=== PATIENT | female | born 1985 | race Caucasian/White ===

== ENCOUNTER → 2017-06-02 | Outpatient (CLI) | payer BC | END | disposition home or self-care (01) | LOC: C.PAPS 14:56 | PROVIDERS: ATTEND Physician Assistant | DX: Z01.419 Encounter for gynecological examination (general) (routine) without abnormal findings (principal) ==

== ENCOUNTER → 2017-06-02 | Outpatient (CLI) | payer BC ==
[2017-06-02 14:23] LABS: URINE APPEARANCE CLEAR (CLEAR); URINE BILIRUBIN NEG (NEG); URINE COLOR YELLOW; URINE EPITHELIAL CELL AUTO >30 /lpf (0-5); URINE NITRITE NEG (NEG); URINE PH 5.5 (4.5-7.5); URINE SPECIFIC GRAVITY 1.029 (1.000-1.030); UROBILINOGEN NEG (NEG)
[2017-06-02 14:30] LABS: MANUAL MICROSCOPIC REQUIRED? NO; REVIEW REQ? NO
== END | disposition home or self-care (01) ==
LOC: C.LABSPEC 13:53
PROVIDERS: ATTEND Physician Assistant
DX: R39.9 Unspecified symptoms and signs involving the genitourinary system (principal)

== ENCOUNTER 2025-03-03 08:40 | Inpatient (IN) ==
[2025-03-03] MEDS ORDERED: ACETAMINOPHEN 500 MG TAB PO PRN (09:05)
[2025-03-03] MEDS ORDERED: LIDOCAINE 1% LOCAL 20 ML VIAL INFIL PRN (09:05)
[2025-03-03] MEDS ORDERED: OXYTOCIN 30 UNITS/NSS 30 UNITS/500 ML BAG IV PRN (09:05)
--- NOTE | 2025-03-03 09:15 | History & Physical Report ---
Date of Service March 03, 2025 Assessment & Plan (1) AMA (advanced maternal age) primigravida 35+: (2) Rh negative status during in first trimester: (3) with 38 completed weeks gestation: (4) Spontaneous rupture of amniotic membranes: Plan: 39-year-old -0-1-0 at 38 weeks and 4-day of gestation presenting today with spontaneous rupture of membranes and regular contractions, Vital signs stable afebrile, GBS negative, heart rate reassuring, Patient has a board plan and desires expectant management with no medical intervention, Plan to admit, monitor, labs,, All questions were answered. Admission and Anticipated Discharge Date Admission Date: March 03, 2025 History of Present Illness Primary Care Provider: Jesus Hicks III, EZEQUIEL patient is a 39-year-old -0-1-0 at 38 weeks and 4 days of gestation who presented to labor and delivery this morning with contractions and appeared to be uncomfortable. She states her water broke around 10:30 PM last night and contractions started around 11 PM. She labored at home and was able to sleep in between contractions. Fluid has been clear, started as a gush and she has been leaking small amounts of fluid since then. Her cervix was checked by admitting nurse when she first presented and it was 2 to 3 cm dilated, 90% effaced head was at minus-2 station. Bedside ultrasound confirmed vertex presentation. Her has been uncomplicated except AMA, NIPT testing was with low risk and RH negative. MFM ultrasound done at 32 weeks for revealed EFW of 65th percentile. She denies any medical problems, smoking, alcohol, drug use, and history of STDs including chlamydia gonorrhea herpes. She states she does not take any medications but takes vitamin and some supplements. And she has about plan which is reviewed by myself and her nurse. Allergies Allergy/AdvReac Type Severity Reaction Status Date / Time No Known Allergies Allergy Verified 07/12/24 15:06 Home Medications Medication Instructions Recorded Confirmed Type Fertility Support 1 dose PO DAILY 12/22/23 07/12/24 History Lactobacil.acidophilus-Bifido.animalis 1 cap PO DAILY 12/22/23 07/12/24 History 5 billion cell sprinkle capsule (Probiotic) magnesium 200 mg tablet 200 mg PO DAILY 12/22/23 07/12/24 History vits no.133-ferrous 1 tab PO DAILY 12/22/23 07/12/24 History fumarate 28 mg-folic acid 800 mcg tablet () s-adenosylmethionine 400 mg tablet 400 mg PO DAILY 12/22/23 07/12/24 History (MELANIA-e) cephalexin 500 mg tablet 500 mg PO BID #20 tabs 02/22/24 07/12/24 Rx lidocaine HCl 2 % mucosal solution 5 ml mucous membrane QID #100 mL 02/22/24 07/12/24 Rx (Lidocaine Viscous) Patient History Medical History (Updated 03/03/25 @ 09:19 by Alyce Desouza MD) Non-viable Depression Controlled, no meds currently Anxiety Controlled, no meds currently History of COVID-19 10/2022 Surgical History History of esophagogastroduodenoscopy (EGD) History of appendectomy [place] teeth extracted History of intussusception surgery 8 months old S/P laparoscopy with lysis of adhesions Family History Grandmother (Paternal) Breast cancer, Onset Age: 32 Grandfather (Maternal) Hypertension Denies family history of Ovarian cancer Prostate cancer Myocardial infarction Colorectal cancer Social History (Updated 07/12/24 @ 15:10 by NENA Leigh) Smoking Status: Never smoker Second Hand Exposure: No; Do You Dip or Chew Tobacco: No; Hx Alcohol Use: No Hx Substance Use: No Preferred Language: Congolese Communication Ability: Effective Switchboard Clerk Required: No Beliefs That Will Affect Care: None marital status: Current Living Situation: Spouse current occupational status: employed current occupation: Mechanics Handyman How many Children do You have: 0 How many Children do You have Comment: Feels Safe at Home: Yes Childhood Exposure to Second-Hand Smoke: No Diet: other Diet Comment: avoids gluten and dairy when possible caffeine: Yes Dental Care, Regularly: Yes Physical Activity Frequency: 3-4 Times per Week Seatbelt Use: always Sunscreen Use: Yes Assistive Devices: None Review of Systems as per Subjective / HPI Physical Exam Constitutional: WD/WN, vitals as above well developed, well nourished and + acute distress ( with contractions only) Gastrointestinal (Abdomen): normal bowel sounds, soft, nontender, no hepatosplenomegaly ( gravid) Genitourinary: OB Exam Monitor Tracing: + external uterine monitor used and + category I Results & Data Vital Signs (Past 12 Hours) Vital Signs Pulse BP 03/03/25 08:48 95 H 128/68 (1) AMA (advanced maternal age) primigravida 35+ Trimester: third trimester Qualified Code(s): O09.513 - Supervision of elderly primigravida, third trimester
[2025-03-03 10:01] LABS: Alanine Aminotransferase 26.0 U/L (7-52); Albumin Globulin Ratio 1.1 (0.9-2); Alkaline Phosphatase 106.0 U/L (34-104); Anion Gap 10.0 (3-11); Bilirubin,Total 0.6 mg/dl (0.2-1.0); Blood Urea Nitrogen 15.0 mg/dl (6-23); Calcium 9.0 mg/dl (8.6-10.3); Carbon Dioxide 19.0 mmol/L (21-32); Chloride 102.0 mmol/L (98-107); Creatinine Clr Calc Pharmacy 100.2 ml/min; Globulin 3.3 gm/dl (2.5-4.0); Glucose 138.0 mg/dl (70-99(Fasting)); Potassium 3.8 mmol/L (3.5-5.1); Sodium 131.0 mmol/L (136-145); Total Protein 7.0 gm/dl (6.0-8.3)
[2025-03-03 10:06] LABS: Hematocrit (blood only) 34.2 % (37.0-47.0); Hemoglobin 11.9 g/dl (12.0-16.0); Mean Corpuscular Hemoglobin 30.2 pg (25.0-34.0); Mean Corpuscular Volume 86.8 fL (80.0-100.0); Platelet Count 131 K/uL (130-400); RDW Standard Deviation 45.7 fL (36.4-46.3); Red Blood Count 3.94 M/uL (4.20-5.40); White Blood Count 14.78 K/ul (4.8-10.8)
--- NOTE | 2025-03-03 14:46 | Obstetrical Progress Note ---
Date of Service March 03, 2025 Assessment & Plan Admission and Anticipated Discharge Date Admission Date: March 03, 2025 Subjective patient is reevaluated. She has been laboring as she desires. Per her report plan she does not want to discuss cervical exam or progress. She wants her to be informed first and then they will discussed and decide by themselves. heart rate had been category 1, toco registering contractions spaced out to every 4-7 minutes. She requested her nurse Bonnie to check her cervix. I discussed the risk of intraamniotic infection with prolonged labor after spontaneous rupture of membranes. After the cervical exam we went out the room and discussed the finding as 2 to 3 cm, 90%, -2, unchanged since this morning. we then discussed risk of intraamniotic infection, needing for IV antibiotics for mom and baby, and risk of getting into sepsis and even . Recommended oxytocin to augment contractions. understood and he has been discussed with his and and they will decide. Continue to monitor closely. Results & Data Vital Signs (Past 12 Hours) Vital Signs Temp Pulse Resp BP 03/03/25 13:30 18 03/03/25 13:30 18 03/03/25 12:00 20 03/03/25 12:00 36.7 C 20 03/03/25 11:55 92 H 03/03/25 11:55 106/58 L 03/03/25 11:30 18 03/03/25 11:30 18 03/03/25 10:15 36.9 C 03/03/25 09:09 36.6 C 03/03/25 08:48 95 H 128/68
[2025-03-03] MEDS: LACTATED RINGER'S 1,000 ML IV PRN (15:25)
[2025-03-03] MEDS ORDERED: diphenhydrAMINE 50 MG/ML VIAL IV PRN (15:58)
[2025-03-03] MEDS ORDERED: NALOXONE HCL 1 MG in SODIUM CHLORIDE 0.9% 1,000 ML IV PRN (15:58)
[2025-03-03] MEDS ORDERED: NALOXONE HCL 0.4 MG/1 ML VIAL/CARP IV PRN (15:58)
[2025-03-03] MEDS ORDERED: BUPIVACAINE 0.25% PF 30 ML VIAL EPI PRN (15:58)
[2025-03-03] MEDS ORDERED: SODIUM CHLORIDE 0.9% PF INJ 10 ML VIAL EPI PRN (15:58)
[2025-03-03] MEDS ORDERED: LIDOCAINE 2% MPF LOCAL 5 ML VIAL EPI PRN (15:58)
[2025-03-03] MEDS ORDERED: NALBUPHINE HCL INJ 10 MG/ML AMP IV PRN (15:58)
[2025-03-03] MEDS ORDERED: ROPIVACAINE 0.5% PF 5 MG/ML 20 ML VIAL EPI PRN (15:58)
[2025-03-03] MEDS ORDERED: ONDANSETRON INJ 2 MG/ML 2 ML VIAL IV PRN (15:58)
--- NOTE | 2025-03-03 15:58 | Anesthesiology Consultation ---
Date of Service March 03, 2025 Assessment & Plan ASA ASA2 Proposed Anesthesia Anesthesia Type: Labor Epidural Risk / Benefits Reviewed With: PT / POA / Parent / Guardian, Accepts Plan and Informed Consent Obtained History Height/Weight Height: 5 ft Weight: 68.946 kg Allergies Allergy/AdvReac Type Severity Reaction Status Date / Time No Known Allergies Allergy Verified 07/12/24 15:06 Medications Home Medications Medication Instructions Recorded Confirmed Last Taken Lactobacil.acidophilus-Bifido.animalis 1 cap PO DAILY 12/22/23 03/03/25 03/02/25 08:00 5 billion cell sprinkle capsule (Probiotic) magnesium 200 mg tablet 200 mg PO DAILY 12/22/23 03/03/25 03/02/25 08:00 vits no.133-ferrous 1 tab PO DAILY 12/22/23 03/03/25 03/02/25 08:00 fumarate 28 mg-folic acid 800 mcg tablet () Active Medications Generic Name Dose Route Start Last Admin Trade Name Freq PRN Reason Stop Dose Admin Lactated Ringer's 1,000 mls @ 125 mls/hr 03/03/25 09:05 03/03/25 16:28 Lr IV 03/05/25 09:04 150 mls/hr .Q8H PRN Administration L&D Protocol Protocol Past Medical History Medical History Non-viable Depression Controlled, no meds currently Anxiety Controlled, no meds currently History of COVID-19 10/2022 Exercise / Class Metabolic Activity II 4-5 Yardwork/Stairs/Walk up hill Past Family History Family History Grandmother (Paternal) Breast cancer, Onset Age: 32 Grandfather (Maternal) Hypertension Denies family history of Ovarian cancer Prostate cancer Myocardial infarction Colorectal cancer Past Surgical History Surgical History History of esophagogastroduodenoscopy (EGD) History of appendectomy [place] teeth extracted History of intussusception surgery 8 months old S/P laparoscopy with lysis of adhesions Past Anesthesia History No Hx of Anesthesia Complications and No Family Hx of Anesthesia Complications History of PONV No Hx of PONV and No Hx of Motion Sickness Social History Smoking Status: Never smoker Do You Dip or Chew Tobacco: No Hx Alcohol Use: No Hx Substance Use: No substance use type: does not use Review of Systems denies fever/cough/ colds/ chest pain/ SOB/ CASA denies CASA Physical Exam Vital Signs Last Vital Signs Temp 36.8 C 03/03/25 14:55 Pulse 78 03/03/25 16:52 Resp 20 03/03/25 14:55 BP 107/63 03/03/25 16:52 Pulse Ox 96 03/03/25 16:52 ENMT Mouth: no TMJ abnormality and no dentition abnormality Thyromental Distance: > or= 3.5 Finger Breadths Mallampati Class: II Neck neck extension not limited Respiratory normal respiratory effort; no respiratory distress Auscultation: lungs clear to auscultation bilaterally Cardiovascular Rate/Rhythm: regular rate and regular rhythm Neurologic moves all extremities Psychiatric Orientation: alert and oriented x 3 Testing Laboratory Results 03/03/25 09:30 03/03/25 09:30
[2025-03-03] MEDS: fentANYL 2 MCG/ML BUPIVacaine 0.125%-NSS 100ML BAG ONE (16:27)
[2025-03-03] MEDS: LIDOCAINE 2%/EPINEPHRINE 1:200,000 20 ML PF ONE (16:28)
[2025-03-03] MEDS: BUPIVACAINE 0.25% PF 30 ML VIAL ONE (16:28)
[2025-03-03] MEDS: OXYTOCIN 30 UNITS/NSS 30 UNITS/500 ML BAG IV PRN (17:12)
[2025-03-03] MEDS: BUPIVACAINE 0.25% PF 30 ML VIAL EPI STA (17:36)
[2025-03-03] MEDS: SODIUM CHLORIDE 0.9% PF INJ 10 ML VIAL EPI STA (17:36)
[2025-03-03] MEDS: LIDOCAINE 2%/EPINEPHRINE 1:200,000 20 ML PF EPI STA (17:36)
[2025-03-03] MEDS: SODIUM CHLORIDE 0.9% PF INJ 10 ML VIAL ONE (17:36)
--- NOTE | 2025-03-03 21:18 | Obstetrical Progress Note ---
Date of Service March 03, 2025 Assessment & Plan Admission and Anticipated Discharge Date Admission Date: March 03, 2025 Subjective Patient is reevaluated. She has received epidural rested and feels "great" Vital signs stable afebrile, heart rate has been category 1. her night nurse checked her about an hour ago and called her cervix 2 to 3 cm, 80%, -2. Oxytocin has been at 6 milliunits/min has not been increased, contractions have been every 3 to 4 minutes. Patient agreed to be checked by myself. Cervix is 4-5 cm, 80%, head is -2 with a bulging bag, I offered AROM and she accepted. Forebag is opened and clear fluid was obtained. heart rate had multiple accelerations and moderate variability. Recommended her nurse to increase the Pitocin to 8 and recheck in 2 hours to see the progress. Continue to monitor closely, All questions were answered. Results & Data Vital Signs (Past 12 Hours) Vital Signs Temp Pulse Resp BP Pulse Ox 03/03/25 21:12 97 03/03/25 21:12 87 03/03/25 21:09 100 H 03/03/25 21:09 124/66 03/03/25 21:07 98 03/03/25 21:07 107 H 03/03/25 21:02 97 03/03/25 21:02 102 H 03/03/25 20:57 97 03/03/25 20:57 97 H 03/03/25 20:53 105 H 03/03/25 20:53 116/60 03/03/25 20:52 97 03/03/25 20:52 95 H 03/03/25 20:47 96 03/03/25 20:47 95 H 03/03/25 20:42 96 03/03/25 20:42 107 H 03/03/25 20:38 108 H 03/03/25 20:38 117/61 03/03/25 20:37 96 03/03/25 20:37 107 H 03/03/25 20:32 96 03/03/25 20:32 99 H 03/03/25 20:27 96 03/03/25 20:27 94 H 03/03/25 20:25 111 H 03/03/25 20:25 110/62 03/03/25 20:22 95 03/03/25 20:22 86 03/03/25 20:17 97 03/03/25 20:17 104 H 03/03/25 20:12 97 03/03/25 20:12 97 H 03/03/25 20:10 100 H 03/03/25 20:10 111/63 03/03/25 20:07 97 03/03/25 20:07 95 H 03/03/25 20:02 97 03/03/25 20:02 82 03/03/25 19:57 97 03/03/25 19:57 80 03/03/25 19:54 83 03/03/25 19:54 117/56 L 03/03/25 19:52 98 03/03/25 19:52 84 03/03/25 19:47 97 03/03/25 19:47 94 H 03/03/25 19:42 97 03/03/25 19:42 91 H 03/03/25 19:39 94 H 03/03/25 19:39 124/68 03/03/25 19:37 97 03/03/25 19:37 90 03/03/25 19:32 97 03/03/25 19:32 92 H 03/03/25 19:27 98 03/03/25 19:27 90 03/03/25 19:24 81 03/03/25 19:24 104/59 L 03/03/25 19:22 97 03/03/25 19:22 88 03/03/25 19:17 96 03/03/25 19:17 84 03/03/25 19:12 96 03/03/25 19:12 80 03/03/25 19:08 87 03/03/25 19:08 108/58 L 03/03/25 19:07 97 03/03/25 19:07 85 03/03/25 19:02 97 03/03/25 19:02 88 03/03/25 18:57 97 03/03/25 18:57 85 03/03/25 18:55 91 H 03/03/25 18:55 114/56 L 03/03/25 18:52 96 03/03/25 18:52 83 03/03/25 18:47 97 03/03/25 18:47 98 H 03/03/25 18:42 97 03/03/25 18:42 97 H 03/03/25 18:40 91 H 03/03/25 18:40 117/65 03/03/25 18:37 96 03/03/25 18:37 78 03/03/25 18:32 95 03/03/25 18:32 93 H 03/03/25 18:30 18 03/03/25 18:30 18 03/03/25 18:27 95 03/03/25 18:27 93 H 03/03/25 18:24 80 03/03/25 18:24 117/62 03/03/25 18:22 97 03/03/25 18:22 91 H 03/03/25 18:17 96 03/03/25 18:17 93 H 03/03/25 18:12 98 03/03/25 18:12 98 H 03/03/25 18:09 93 H 03/03/25 18:09 117/64 03/03/25 18:07 97 03/03/25 18:07 85 03/03/25 18:02 97 03/03/25 18:02 82 03/03/25 18:00 18 03/03/25 18:00 18 03/03/25 17:57 98 03/03/25 17:57 85 03/03/25 17:52 97 03/03/25 17:52 87 03/03/25 17:51 86 03/03/25 17:51 119/62 03/03/25 17:47 97 03/03/25 17:47 92 H 03/03/25 17:46 93 H 03/03/25 17:46 115/62 03/03/25 17:42 96 03/03/25 17:42 84 03/03/25 17:40 89 03/03/25 17:40 116/63 03/03/25 17:37 97 03/03/25 17:37 82 03/03/25 17:35 93 H 03/03/25 17:35 122/63 03/03/25 17:32 97 03/03/25 17:32 85 03/03/25 17:31 86 03/03/25 17:31 117/58 L 03/03/25 17:27 97 03/03/25 17:27 93 H 03/03/25 17:26 85 03/03/25 17:26 95/53 L 03/03/25 17:22 98 03/03/25 17:22 70 03/03/25 17:21 93 H 03/03/25 17:21 98/53 L 03/03/25 17:17 98 03/03/25 17:17 96 H 03/03/25 17:17 106/55 L 03/03/25 17:12 98 03/03/25 17:12 92 H 03/03/25 17:12 90 03/03/25 17:12 112/54 L 03/03/25 17:07 98 03/03/25 17:07 96 H 03/03/25 17:05 76 03/03/25 17:05 121/59 L 03/03/25 17:03 82 03/03/25 17:03 119/70 03/03/25 17:02 99 03/03/25 17:02 82 03/03/25 17:00 18 03/03/25 17:00 36.7 C 18 03/03/25 16:58 88 03/03/25 16:58 108/60 03/03/25 16:57 98 03/03/25 16:57 90 03/03/25 16:56 86 03/03/25 16:56 107/61 03/03/25 16:54 73 03/03/25 16:54 111/62 03/03/25 16:52 96 03/03/25 16:52 78 03/03/25 16:52 107/63 03/03/25 16:50 18 03/03/25 16:50 18 03/03/25 16:50 96 H 03/03/25 16:50 113/67 03/03/25 16:48 83 03/03/25 16:48 110/61 03/03/25 16:47 97 03/03/25 16:47 93 H 03/03/25 16:46 81 03/03/25 16:46 109/62 03/03/25 16:45 20 03/03/25 16:45 20 03/03/25 16:44 83 03/03/25 16:44 110/64 03/03/25 16:42 98 03/03/25 16:42 81 03/03/25 16:42 111/63 03/03/25 16:40 18 03/03/25 16:40 18 03/03/25 16:40 88 03/03/25 16:40 107/59 L 03/03/25 16:38 85 03/03/25 16:38 111/57 L 03/03/25 16:37 97 03/03/25 16:37 86 03/03/25 16:36 90 03/03/25 16:36 110/64 03/03/25 16:35 20 03/03/25 16:35 20 03/03/25 16:34 84 03/03/25 16:34 102/60 03/03/25 16:32 98 03/03/25 16:32 90 03/03/25 16:32 100/57 L 03/03/25 16:30 16 03/03/25 16:30 16 03/03/25 16:30 89 03/03/25 16:30 114/56 L 03/03/25 16:28 93 H 03/03/25 16:28 117/59 L 03/03/25 16:27 98 03/03/25 16:27 84 03/03/25 16:26 90 03/03/25 16:26 118/60 03/03/25 16:24 100 H 03/03/25 16:24 116/61 03/03/25 16:22 98 03/03/25 16:22 93 H 03/03/25 16:22 90 03/03/25 16:22 125/62 03/03/25 16:17 99 03/03/25 16:17 92 H 03/03/25 14:55 20 03/03/25 14:55 36.8 C 20 03/03/25 14:55 86 03/03/25 14:55 115/67 03/03/25 13:30 18 03/03/25 13:30 18 03/03/25 12:00 20 03/03/25 12:00 36.7 C 20 03/03/25 11:55 92 H 03/03/25 11:55 106/58 L 03/03/25 11:30 18 03/03/25 11:30 18 03/03/25 10:15 36.9 C
[2025-03-03] MEDS: CALCIUM CARBONATE 500 MG CHEWABLE TAB PO PRN (22:11)
--- NOTE | 2025-03-03 23:05 | Obstetrical Progress Note ---
Date of Service March 03, 2025 Assessment & Plan Admission and Anticipated Discharge Date Admission Date: March 03, 2025 Subjective Patient is reevaluated. She feels well, comfortable. Feels rectal pressure with some of the contractions, not painful. Vital signs stable afebrile, heart rate category 1, [place] with contractions every 3 to 4 minutes, Pitocin is at 10 milliunits/min. vaginal exam cervix is 6 to 7 cm, 80%, head is at +1 station, coned, direct occipitoposterior, Continue to monitor closely. Results & Data Vital Signs (Past 12 Hours) Vital Signs Temp Pulse Resp BP Pulse Ox 03/03/25 23:02 98 03/03/25 23:02 95 H 03/03/25 22:57 94 03/03/25 22:57 117 H 03/03/25 22:55 105 H 03/03/25 22:55 98/56 L 03/03/25 22:52 98 03/03/25 22:52 85 03/03/25 22:47 95 03/03/25 22:47 104 H 03/03/25 22:42 96 03/03/25 22:42 77 03/03/25 22:39 86 03/03/25 22:39 115/61 03/03/25 22:37 96 03/03/25 22:37 90 03/03/25 22:32 96 03/03/25 22:32 97 H 03/03/25 22:27 96 03/03/25 22:27 88 03/03/25 22:27 112/58 L 03/03/25 22:24 98 H 03/03/25 22:24 150/62 H 03/03/25 22:22 97 03/03/25 22:22 89 03/03/25 22:17 98 03/03/25 22:17 93 H 03/03/25 22:12 97 03/03/25 22:12 90 03/03/25 22:09 85 03/03/25 22:09 111/65 03/03/25 22:07 96 03/03/25 22:07 94 H 03/03/25 22:02 98 03/03/25 22:02 113 H 03/03/25 21:57 95 03/03/25 21:57 81 03/03/25 21:55 85 03/03/25 21:55 106/57 L 03/03/25 21:54 94 03/03/25 21:54 84 03/03/25 21:52 96 03/03/25 21:52 97 H 03/03/25 21:47 97 03/03/25 21:47 94 H 03/03/25 21:42 96 03/03/25 21:42 84 03/03/25 21:40 80 03/03/25 21:40 103/57 L 03/03/25 21:37 95 03/03/25 21:37 95 H 03/03/25 21:32 98 03/03/25 21:32 89 03/03/25 21:27 95 03/03/25 21:27 83 03/03/25 21:24 80 03/03/25 21:24 107/58 L 03/03/25 21:23 93 03/03/25 21:23 98 H 03/03/25 21:22 96 03/03/25 21:22 96 H 03/03/25 21:17 96 03/03/25 21:17 96 H 03/03/25 21:12 97 03/03/25 21:12 87 03/03/25 21:09 100 H 03/03/25 21:09 124/66 03/03/25 21:07 98 03/03/25 21:07 107 H 03/03/25 21:02 97 03/03/25 21:02 102 H 03/03/25 20:57 97 03/03/25 20:57 97 H 03/03/25 20:53 105 H 03/03/25 20:53 116/60 03/03/25 20:52 97 03/03/25 20:52 95 H 03/03/25 20:47 96 03/03/25 20:47 95 H 03/03/25 20:42 96 03/03/25 20:42 107 H 03/03/25 20:38 108 H 03/03/25 20:38 117/61 03/03/25 20:37 96 03/03/25 20:37 107 H 03/03/25 20:32 96 03/03/25 20:32 99 H 03/03/25 20:27 96 03/03/25 20:27 94 H 03/03/25 20:25 111 H 03/03/25 20:25 110/62 03/03/25 20:22 95 03/03/25 20:22 86 03/03/25 20:17 97 03/03/25 20:17 104 H 03/03/25 20:12 97 03/03/25 20:12 97 H 03/03/25 20:10 100 H 03/03/25 20:10 111/63 03/03/25 20:07 97 03/03/25 20:07 95 H 03/03/25 20:02 97 03/03/25 20:02 82 03/03/25 19:57 97 03/03/25 19:57 80 03/03/25 19:54 83 03/03/25 19:54 117/56 L 03/03/25 19:52 98 03/03/25 19:52 84 03/03/25 19:47 97 03/03/25 19:47 94 H 03/03/25 19:42 97 03/03/25 19:42 91 H 03/03/25 19:39 94 H 03/03/25 19:39 124/68 03/03/25 19:37 97 03/03/25 19:37 90 03/03/25 19:32 97 03/03/25 19:32 92 H 03/03/25 19:27 98 03/03/25 19:27 90 03/03/25 19:24 81 03/03/25 19:24 104/59 L 03/03/25 19:22 97 03/03/25 19:22 88 03/03/25 19:17 96 03/03/25 19:17 84 03/03/25 19:12 96 03/03/25 19:12 80 03/03/25 19:08 87 03/03/25 19:08 108/58 L 03/03/25 19:07 97 03/03/25 19:07 85 03/03/25 19:02 97 03/03/25 19:02 88 03/03/25 18:57 97 03/03/25 18:57 85 03/03/25 18:55 91 H 03/03/25 18:55 114/56 L 03/03/25 18:52 96 03/03/25 18:52 83 03/03/25 18:47 97 03/03/25 18:47 98 H 03/03/25 18:42 97 03/03/25 18:42 97 H 03/03/25 18:40 91 H 03/03/25 18:40 117/65 03/03/25 18:37 96 03/03/25 18:37 78 03/03/25 18:32 95 03/03/25 18:32 93 H 03/03/25 18:30 18 03/03/25 18:30 18 03/03/25 18:27 95 03/03/25 18:27 93 H 03/03/25 18:24 80 03/03/25 18:24 117/62 03/03/25 18:22 97 03/03/25 18:22 91 H 03/03/25 18:17 96 03/03/25 18:17 93 H 03/03/25 18:12 98 03/03/25 18:12 98 H 03/03/25 18:09 93 H 03/03/25 18:09 117/64 03/03/25 18:07 97 03/03/25 18:07 85 03/03/25 18:02 97 03/03/25 18:02 82 03/03/25 18:00 18 03/03/25 18:00 18 03/03/25 17:57 98 03/03/25 17:57 85 03/03/25 17:52 97 03/03/25 17:52 87 03/03/25 17:51 86 03/03/25 17:51 119/62 03/03/25 17:47 97 03/03/25 17:47 92 H 03/03/25 17:46 93 H 03/03/25 17:46 115/62 03/03/25 17:42 96 03/03/25 17:42 84 03/03/25 17:40 89 03/03/25 17:40 116/63 03/03/25 17:37 97 03/03/25 17:37 82 03/03/25 17:35 93 H 03/03/25 17:35 122/63 03/03/25 17:32 97 03/03/25 17:32 85 03/03/25 17:31 86 03/03/25 17:31 117/58 L 03/03/25 17:27 97 03/03/25 17:27 93 H 03/03/25 17:26 85 03/03/25 17:26 95/53 L 03/03/25 17:22 98 03/03/25 17:22 70 03/03/25 17:21 93 H 03/03/25 17:21 98/53 L 03/03/25 17:17 98 03/03/25 17:17 96 H 03/03/25 17:17 106/55 L 03/03/25 17:12 98 03/03/25 17:12 92 H 03/03/25 17:12 90 03/03/25 17:12 112/54 L 03/03/25 17:07 98 03/03/25 17:07 96 H 03/03/25 17:05 76 03/03/25 17:05 121/59 L 03/03/25 17:03 82 03/03/25 17:03 119/70 03/03/25 17:02 99 03/03/25 17:02 82 03/03/25 17:00 18 03/03/25 17:00 36.7 C 18 03/03/25 16:58 88 03/03/25 16:58 108/60 03/03/25 16:57 98 03/03/25 16:57 90 03/03/25 16:56 86 03/03/25 16:56 107/61 03/03/25 16:54 73 03/03/25 16:54 111/62 03/03/25 16:52 96 03/03/25 16:52 78 03/03/25 16:52 107/63 03/03/25 16:50 18 03/03/25 16:50 18 03/03/25 16:50 96 H 03/03/25 16:50 113/67 03/03/25 16:48 83 03/03/25 16:48 110/61 03/03/25 16:47 97 03/03/25 16:47 93 H 03/03/25 16:46 81 03/03/25 16:46 109/62 03/03/25 16:45 20 03/03/25 16:45 20 03/03/25 16:44 83 03/03/25 16:44 110/64 03/03/25 16:42 98 03/03/25 16:42 81 03/03/25 16:42 111/63 03/03/25 16:40 18 03/03/25 16:40 18 03/03/25 16:40 88 03/03/25 16:40 107/59 L 03/03/25 16:38 85 03/03/25 16:38 111/57 L 03/03/25 16:37 97 03/03/25 16:37 86 03/03/25 16:36 90 03/03/25 16:36 110/64 03/03/25 16:35 20 03/03/25 16:35 20 03/03/25 16:34 84 03/03/25 16:34 102/60 03/03/25 16:32 98 03/03/25 16:32 90 03/03/25 16:32 100/57 L 03/03/25 16:30 16 03/03/25 16:30 16 03/03/25 16:30 89 03/03/25 16:30 114/56 L 03/03/25 16:28 93 H 03/03/25 16:28 117/59 L 03/03/25 16:27 98 03/03/25 16:27 84 03/03/25 16:26 90 03/03/25 16:26 118/60 03/03/25 16:24 100 H 03/03/25 16:24 116/61 03/03/25 16:22 98 03/03/25 16:22 93 H 03/03/25 16:22 90 03/03/25 16:22 125/62 03/03/25 16:17 99 03/03/25 16:17 92 H 03/03/25 14:55 20 03/03/25 14:55 36.8 C 20 03/03/25 14:55 86 03/03/25 14:55 115/67 03/03/25 13:30 18 03/03/25 13:30 18 03/03/25 12:00 20 03/03/25 12:00 36.7 C 20 03/03/25 11:55 92 H 03/03/25 11:55 106/58 L 03/03/25 11:30 18 03/03/25 11:30 18
[2025-03-03] MEDS: fentANYL 2 MCG/ML BUPIVacaine 0.125%-NSS 100ML BAG EPI PRN (23:13)
[2025-03-04] MEDS: FAMOTIDINE 20 MG TAB PO SCH (00:30)
[2025-03-04] MEDS ORDERED: BENZOCAINE 20% SPRY 85 APPLN/85 GM CAN EXT PRN (06:35)
[2025-03-04] MEDS ORDERED: HYDROCORTISONE ACETATE 25 MG SUPP PR PRN (06:35)
[2025-03-04] MEDS ORDERED: OXYTOCIN 30 UNITS/NSS 30 UNITS/500 ML BAG IV PRN (06:35)
--- NOTE | 2025-03-04 06:44 | Delivery Summary ---
Vaginal Delivery Summary Date of Service March 04, 2025 Vaginal Delivery Summary Patient was found to be fully dilated and head was at +2 station. She started to feel rectal pressure and desired to push. She pushed for about 28 min and delivered the head and then shoulders spontaneously without minimal traction. The baby was handed off to the mother. The cord was clampedx2 and cut at 3 minute delay per patient request. The vagina and perineum were checked and found to have 2nd degree perineal laceration which extended into right vaginal sulcus. Rectal exam was done and noted good sphincter tone. The gloves were changes. Perineal body muscles around the sphincter were held with Allis clamps and sutured with Fig of 8 stitches x2 to support. The vaginal mucosa was repaired with 2/0 vicryl and skin on subcuticular fashion. The placenta was delivered spontaneously as intact and complete. The uterus was explored and found to be empty. QBL was 358 ml. The fundus was firm The baby was a viable female infant, Apgars 8/9, the weight is pending The mother and the baby tolerated the procedure well. No complications happened and I was present during whole procedure.
--- NOTE | 2025-03-04 07:26 | Anesthesia Procedure Note ---
Date of Service March 04, 2025 Anesthesia Post Epidural Note Vital Signs Vital Signs: Temp Pulse Resp BP Pulse Ox 98.1 F 90 16 95/53 L 97 03/04/25 05:05 03/04/25 07:23 03/04/25 03:15 03/04/25 07:08 03/04/25 07:23 Notes Mental Status: alert / awake / arousable and participated in evaluation Nausea / Vomiting: adequately controlled Pain: adequately controlled Airway Patency, RR, SpO2: stable & adequate BP & HR: stable & adequate Hydration State: stable & adequate Neuraxial Anesthesia: was administered and sensory block is resolving Anesthetic Complications: no major complications apparent and Pt Satisfied with anesthetic care Epidural: Removed without complications and With tip intact
[2025-03-04] MEDS: MINERAL OIL 30 ML UDC ONE ×2 (07:55)
[2025-03-04] MEDS: IBUPROFEN 600 MG TAB PO PRN (09:03)
[2025-03-04] MEDS: PRENATAL VITAMIN 1 TAB PO SCH (09:03)
[2025-03-04] MEDS: FERROUS SULFATE 325 MG TAB PO SCH (09:03)
[2025-03-04] MEDS: DOCUSATE SODIUM 100 MG CAP PO SCH (09:03)
[2025-03-04] MEDS: ACETAMINOPHEN 325 MG TAB PO PRN (10:26)
[2025-03-04] MEDS: MEASLES, MUMPS & RUBELLA VIRUS VACCINE (MMR) 0.5ML VIAL SQ ONE (18:07)
[2025-03-04] MEDS: DIPHTHER/TETAN/PERTUS Vaccine (Tdap, Adol/Adult) 0.5mL IM ONE (18:08)
[2025-03-05 06:49] LABS: Hematocrit (blood only) 26.6 % (37.0-47.0); Hemoglobin 8.8 g/dl (12.0-16.0); Mean Corpuscular Hemoglobin 29.8 pg (25.0-34.0); Mean Corpuscular Volume 90.2 fL (80.0-100.0); Platelet Count 120 K/uL (130-400); RDW Standard Deviation 48.7 fL (36.4-46.3); Red Blood Count 2.95 M/uL (4.20-5.40); White Blood Count 11.60 K/ul (4.8-10.8)
--- NOTE | 2025-03-05 10:02 | Obstetrical Progress Note ---
Date of Service March 05, 2025 Subjective Ambulation: ambulating normally Voiding: no voiding problems Passing Gas:: Yes Diet Tolerance:: regular diet Lochia:: Small Feeding Type:: breast feeding Current Pain Level(1-10): 0 doing well Physical Exam Constitutional WD/WN, vitals as above Musculoskeletal Extremities: extremities normal to inspection Skin no rashes, warm and dry Neurologic patellar DTR's 2+ bilat, sensation intact Psychiatric A+Ox3, euthymic affect Results & Data Vital Signs (Past 12 Hours) Vital Signs Temp Pulse Resp BP Pulse Ox O2 Del Method 03/05/25 03:50 36.5 C 89 20 110/62 99 Room Air 03/04/25 23:50 36.7 C 58 L 20 93/51 L 97 Room Air Laboratory Results Laboratory Results - last 48 hr 03/03/25 03/05/25 09:30 06:02 WBC 14.78 H 11.60 H RBC 3.94 L 2.95 L Hgb 11.9 L 8.8 L D Hct 34.2 L 26.6 L MCV 86.8 90.2 MCH 30.2 29.8 MCHC 34.8 33.1 RDW Std Deviation 45.7 48.7 H RDW Coeff of Adwoa 14.3 14.7 H Plt Count 131 120 L MPV 10.8 11.0 Treponema pallidum Ab Negative
[2025-03-05 16:31] VITALS: O2SAT 97
[2025-03-06 07:46] VITALS: BP 104/64; PULSE 65; RESP 16; TEMP 97.9
--- NOTE | 2025-03-06 10:02 | Obstetrical Progress Note ---
Date of Service March 06, 2025 Assessment & Plan Admission and Anticipated Discharge Date Admission Date: March 03, 2025 Subjective Patient is seen and examined. She feels well, no complaints. Ambulating without dizziness Voiding without difficulty Tolerating regular diet with out N&V Bleeding is minimal No fever/ chills/ CP/ SOB/ N&V/ Leg pain Breast feeding without problems Vital Signs Temp Pulse Resp BP Pulse Ox O2 Del Method 03/06/25 07:44 36.6 C 65 16 104/64 Room Air 03/06/25 01:00 36.9 C 73 20 102/57 L 97 Room Air 03/05/25 20:20 36.7 C 78 20 112/67 97 Room Air 03/05/25 16:25 36.6 C 74 16 99/63 L 97 Room Air Lab Results 03/03/25 03/05/25 Range/Units 09:30 06:02 WBC 14.78 H 11.60 H (4.8-10.8) K/ul RBC 3.94 L 2.95 L (4.20-5.40) M/uL Hgb 11.9 L 8.8 L D (12.0-16.0) g/dl Hct 34.2 L 26.6 L (37.0-47.0) % MCV 86.8 90.2 (80.0-100.0) fL MCH 30.2 29.8 (25.0-34.0) pg MCHC 34.8 33.1 (32.0-36.0) g/dL RDW Std Deviation 45.7 48.7 H (36.4-46.3) fL RDW Coeff of [place] 14.3 14.7 H (11.5-14.5) % Plt Count 131 120 L (130-400) K/uL MPV 10.8 11.0 (9.4-12.4) fL Sodium 131 L (136-145) mmol/L Potassium 3.8 (3.5-5.1) mmol/L Chloride 102 (98-107) mmol/L Carbon Dioxide 19 L (21-32) mmol/L Anion Gap 10 (3-11) BUN 15 (6-23) mg/dl Creatinine 0.64 (0.6-1.2) mg/dl Est Cr Clr Drug Dosing 100.2 ml/min eGFR 113.79 BUN/Creatinine Ratio 23.4 H (10-20) Glucose 138 H (70-99(Fasting)) mg/dl Calcium 9.0 (8.6-10.3) mg/dl Total Bilirubin 0.6 (0.2-1.0) mg/dl AST 22 (13-39) U/L ALT 26 (7-52) U/L Alkaline Phosphatase 106 H (34-104) U/L Total Protein 7.0 (6.0-8.3) gm/dl Albumin 3.7 (3.4-5.0) gm/dl Globulin 3.3 (2.5-4.0) gm/dl Albumin/Globulin Ratio 1.1 (0.9-2) Treponema pallidum Ab Negative (Negative) PE: General: Alert, orientedx3, NAD Abd: soft, NT, fundus firm, below Umbilicus Perineum intact, Lochia rubra minimal Ext; NT, no edema AP: 39 yo s/p , ppd# 2 VSS Afebrile doing well Anemic asymptomatic, did not want repeat H&H this morning Discussed IV iron therapy but prefers Oral iron, has been on bid iron Continue routine care All questions were answered D/C home , f/u in office Results & Data Vital Signs (Past 12 Hours) Vital Signs Temp Pulse Resp BP Pulse Ox O2 Del Method 03/06/25 07:44 36.6 C 65 16 104/64 Room Air 03/06/25 01:00 36.9 C 73 20 102/57 L 97 Room Air
--- NOTE | 2025-03-07 09:10 | Obstetrical Progress Note ---
Date of Service March 07, 2025 Assessment & Plan Admission and Anticipated Discharge Date Admission Date: March 03, 2025 Subjective I called her for the result of skin biopsy, no answer, LM Skin, perineal region (skin biopsy): - An acrochordon (skin tag) is seen
== END 2025-03-06 13:50 | disposition home health service (06) | DRG 807 ==
LOC: 4S1 08:40 → 4E2 03-04 09:02